=== PATIENT | male | born 1960 | race Caucasian/White ===

== ENCOUNTER 2017-11-07 17:37 | Inpatient (IN) | payer OTHER ==
[~2017-11-07] VITALS: Ht 185.4 cm; Wt 131.9 kg
--- NOTE | ~2017-11-07 | EKG ---
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: RAKEL : 1960 Requested By: Zain Zafar Order Number: [id number] MD: Isiah Gracia Measurements Intervals [place] Rate: 100 P: GA: QRS: -85 QRSD: 128 T: 99 QT: 371 QTc: 479 Interpretive Statements Atrial fibrillation Leftward axis left bundle branch block Compared to ECG 11/07/2017 17:49:13 Heart rate has slowed Electronically Signed On 11-10-2017 9:00:58 SCHEDULE HANGER by Isiah Gracia [email or web address] <ELECTRONICALLY SIGNED> By: Isiah Gracia MD, [facility] 11/10/17 0900 D: [id number] Isiah Gracia MD, FACC /EPI
--- NOTE | ~2017-11-07 | 2DMMODE ---
[facility] [address] [place] [address] 2 D/M-MODE ECHOCARDIOGRAM Name: LULY WILEY VANESSA Room #: 207-P ADM IN M.R.#: [id number] Admission: 11/07/17 Attend Phys: Abundio Maciel Discharge: Date of : 60 Date of Service: 11/08/17 1045 Report #: [id number] THIS REPORT FOR: //name// APPROVED REPORT Study performed: 11/08/2017 09:12:43 EXAM: Comprehensive 2D, Doppler, and color-flow Echocardiogram Patient Location: Bedside Room #: 207 Status: routine BSA: 2.51 HR: 91 bpm BP: 159/78 mmHg Other Information Study Quality: Adequate Indications Congestive Heart Failure Cardiomyopathy Atrial flutter 2D Dimensions RVDd: 57.43 mm LVEF(%): 30.17 (>50%) IVSd: 8.36 (7-11mm) LVOT Diam: 30.42 (18-24mm) LVDd: 70.38 mm PWd: 8.24 (7-11mm) Ascending Ao: 33.82 (22-36mm) LVDs: 60.08 (25-40mm) Aortic Root: 35.38 mm IVC: 31.00 mm Plascencia's LVEF: 30.17 % Volumes Left Atrial Volume (Systole) Single Plane 4CH: 107.10 mL Single Plane 2CH: 203.32 mL LA ESV Index: 66.00 mL/m2 Mitral Valve MV Decel. Time: 93.73 ms MV E Max Neil.: 1.02 m/s Pulmonary Valve PV Peak Neil.: 0.85 m/s PV Peak Gr.: 2.88 mmHg Tricuspid Valve [facility] [email or web address] [address] 2 D/M-MODE ECHOCARDIOGRAM Name: SAURABHLULY VANESSA Room #: 207-P [facility] IN [facility].#: [id number] Admission: 11/07/17 Attend Phys: Abundio Maciel Discharge: Date of : 60 Date of Service: 11/08/17 1045 Report #: [id number] TR Peak Neil.: 2.26 m/s TR Peak Gr.: 20.76 mmHg PA Pressure: 36.00 mmHg Left Ventricle Left ventricle is dilated. There is global hypokinesis of the left ventricle. There is normal left ventricular wall thickness. Left ventricular ejection fraction is severely decreased. LVEF is 20-25%. This study is not technically sufficient to allow evaluation of the LV diastolic function due to atrial fibrillation. Right Ventricle Right ventricle is dilated. Right ventricle is hypokinetic. Atria Left atrium is dilated. Right atrium is dilated. Aortic Valve The aortic valve is normal in structure. No aortic regurgitation is present. There is no aortic valvular stenosis. Mitral Valve The mitral valve is normal in structure. Mild mitral regurgitation. No evidence of mitral valve stenosis. Tricuspid Valve The tricuspid valve is normal in structure. There is trace tricuspid regurgitation. The right atrial pressure is estimated at mmHg. There is mild pulmonary hypertension. Pulmonic Valve The pulmonary valve is normal in structure. Trace pulmonic regurgitation. Great Vessels The aortic root is normal in size. The inferior vena cava is dilated with no inspiratory collapse. Pericardium Trace pericardial effusion. <Conclusion> LVEF is 20-25%. Left ventricle is dilated. There is global hypokinesis of the left ventricle. [facility] [email or web address] [address] 2 D/M-MODE ECHOCARDIOGRAM Name: LULY WILEY Room #: 207-P [facility] IN M.R.#: [id number] Admission: 11/07/17 Attend Phys: Abundio Maciel Discharge: Date of : 60 Date of Service: 11/08/171044 Report #: [id number] No aortic regurgitation is present. Mild mitral regurgitation. Mild mitral regurgitation. <ELECTRONICALLY SIGNED> By: Zain Zafar MD, FACC 11/08/175 44 44 Zain Zafar MD, FACC /INF
--- NOTE | ~2017-11-07 | EKG ---
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
--- NOTE | ~2017-11-07 | EKG ---
[address] [place] [address] ELECTROCARDIOGRAM REPORT Name: LULY WILEY Room #: 207-P ADM IN M.R.#: [id number] Admission: 11/07/17 Attend Phys: Abundio Nettles Discharge: Date of : 60 Report #: [id number] THIS REPORT FOR: //name// [facility] Test Date: 2017-11-10 Test Time: 09:42:13 Pat Name: LULY WILEY Department: Room: 207 P Gender: M Solar Energy Installation Manager: Mel CHAMBERS : 1960 Requested By: Zain Zafar Order Number: [id number] MD: Steven Wade Measurements Intervals [place] Rate: 70 P: -44 HI: 198 QRS: 262 QRSD: 115 T: 158 QT: 430 QTc: 464 Interpretive Statements Sinus rhythm Left atrial enlargement Nonspecific IVCD with LAD Compared to ECG 11/10/2017 05:48:19 Electronically Signed On 11-11-2017 8:25:33 PLANT OPERATOR CONTROL ROOM OPERATOR by Steven Wade [email or web address] <ELECTRONICALLY SIGNED> By: Steven Wade MD 11/11/17 0825 1 1 Steven Wade MD /[place]
--- NOTE | ~2017-11-07 | HC ---
[facility] [place] [address] CONSULTATION Name: SAURABHLULY KILLIAN Room #: 207-P ADM IN M.R.#: [id number] Admission: 11/07/17 Attend Phys: Abundio Nettles Discharge: Date of : 60 Report #: [id number] THIS REPORT FOR: //name// CC: Dazhoinga Nettles A patient of Dr. Brown, [facility], room 207. A 57-year-old white male admitted with an acute episode of atrial flutter. The patient had a similar episode in 2013 and was treated pharmacologically and electrically. He has not taken medication since that time. He was apparently on amiodarone at some time with his prior episode, but appears not to have been taking the medication recently. The patient has no personal or family history of thyroid disease or thyroid abnormalities. He is clinically euthyroid with respect to all other clinical parameters. He is now on a variety of medications including furosemide, lisinopril, carvedilol, and amiodarone. Otherwise, there is no historical information available that has not previously been dictated. OBJECTIVE: LABORATORY DATA: Free T4 from this admission was elevated at 2.8. TSH was low at 0.007. The remainder of the routine lab is as per chart. PHYSICAL EXAMINATION: GENERAL: Well-nourished, well-developed 57-year-old white male, in no acute distress. VITAL SIGNS: The patient is afebrile, heart rate 116 and irregular, blood pressure 122/80. SKIN: Warm and moist without abnormalities. HEENT: There is no ophthalmopathy. The thyroid is minimally enlarged and slightly firm without nodularity. It moves well with deglutition. NEUROLOGIC: Deep tendon reflexes are 2+ with a very minimally accelerated return phase bilaterally. The remainder of the examination is essentially euthyroid. ASSESSMENT: Hyperthyroidism, must rule out Graves disease, it is unlikely but still possible that this was caused by prior exposure to amiodarone. The patient is now back on amiodarone, which may make diagnosis and treatment more difficult. PLAN: 1. The patient is currently tachycardic. He is on some suppression with carvedilol. Will allow Cardiology to decide whether more substantial beta blockade is indicated or not. 2. Will evaluate TBII to evaluate for presence or absence of Graves disease. 3. Will initiate 6 and 24-hour radioiodine thyroid uptake to determine whether the patient could potentially be treated with radioiodine. Will also initiate [address] [address] CONSULTATION Name: LULY WILEY VANESSA Room #: 207-P [facility] IN .R.#: [id number] Admission: 11/07/17 Attend Phys: Abundio Nettles Discharge: Date of : 60 Report #: [id number] methimazole while awaiting radioiodine testing. If the patient's disease is due to amiodarone, it may require high doses of antithyroid medication for control and it would take months before the stored up thyroid hormone is metabolized out into the system, rendering the patient clinically euthyroid. 4. If possible, avoid any IV iodine containing contrast solution as this can significantly exacerbate current hyperthyroidism. 5. Have discussed the three methods of treatment with the patient (surgery, antithyroid drugs, radioiodine) and will discuss with him further once pending lab is available. Thank you very much for this consultation. I will continue to follow the patient with you for evaluation and treatment of thyroid disease. <ELECTRONICALLY SIGNED> By: Roberto Stout MD 11/10/17 1353 1322 13 Roberto Stout MD /nt
--- NOTE | ~2017-11-07 | HC ---
[facility] [place] [address] CONSULTATION Name: LULY WILEY Room #: 207-[facility] IN M.R.#: [id number] Admission: 11/07/17 Attend Phys: Abundio Nettles Discharge: 11/11/17 Date of : 60 Report #: [id number] THIS REPORT FOR: //name// CC: Macario Nettles No family physician. REQUESTING PHYSICIAN: Dr. Martinez. CHIEF COMPLAINT: Shortness of breath, atrial fibrillation. HISTORY OF PRESENT ILLNESS: The patient is a 57-year-old man with a history of paroxysmal atrial fibrillation, previously followed by Dr. Yoo in our practice. Over the past month since after , he has developed increasing shortness of breath, weight gain to a certain extent and associated dyspnea with exertion and PND. He presented with tachycardia with heart rates in the 120s. He has a previous history of atrial fibrillation and had a prior NELLA cardioversion in the past. He has been off all his medications as he has not been seen in our office or a primary doctor's. He denies chest pain or pressure. He presents with no neuro symptoms of slurred speech, numbness, visual changes or weakness. He is a smoker. He smokes 1-2 cigarettes daily and drinks perhaps only 1 day per week, perhaps 2-3 beers on the weekend only. He denies fevers, chills or productive cough. He denies significant edema. He denies any complications with his previous medications including anticoagulation, has no complaints of GI or bleeding. He denies falls. HOME MEDICATIONS: Did include Xarelto, carvedilol 6.25 mg p.o. b.i.d., lisinopril 2.5 mg daily and Lipitor 20 mg daily. PAST MEDICAL HISTORY: In addition to paroxysmal atrial fibrillation, he has hypertension, tobacco use, hyperlipidemia. He is not a diabetic. SOCIAL HISTORY: A [id number] history of smoking. PAST SURGICAL HISTORY: No recent surgeries. REVIEW OF SYSTEMS: [facility] [address] [place] [address] CONSULTATION Name: LULY WILEY VANESSA Room #: 207-[facility] IN M.R.#: [id number] Admission: 11/07/17 Attend Phys: Abundio Nettles Discharge: 11/11/17 Date of : 60 Report #: [id number] GASTROINTESTINAL: No abdominal pain, nausea, vomiting, bleeding. GENITOURINARY: No dysuria or hematuria. PULMONARY: No history of obstructive lung disease. No cough or wheezing. CARDIOVASCULAR: Positive orthopnea, positive PND, positive weight gain, positive dyspnea with exertion, no chest pain. NEUROLOGIC: No syncope or seizures. HEMATOLOGIC: No anemia or bleeding disorders. SKIN: No rashes. RENAL: No history of kidney failure. ENDOCRINE: He is not known to have any thyroid disease. PHYSICAL EXAMINATION: VITAL SIGNS: Blood pressure is 105/68, pulse is 94, temperature is 36.7. GENERAL: This is an obese, middle-aged male, is alert, oriented, no apparent distress. NECK: Supple. No jugular venous distention. CARDIOVASCULAR: Regular, tachycardic. LUNGS: Diminished breath sounds bilaterally. Faint basilar rales. ABDOMEN: Soft, nontender, nondistended, obese. EXTREMITIES: There is a trace amount of edema. SKIN: Warm and dry. PSYCHIATRIC: The patient has appropriate mood and affect. LABORATORY DATA: Electrocardiogram demonstrates a left bundle branch block with a tachycardic, regular. Possible discernible P waves or flutter waves. Chest x-ray reveals bilateral infiltrates, cardiomegaly. His troponin was 0.04. Total cholesterol was 97, with an LDL of 50, creatinine is 1.1. Hemoglobin 16.6. IMPRESSION: 1. Acute congestive heart failure, likely systolic dysfunction. He has been given IV diuretics, and we will restart his Coreg and lisinopril. 2. Atrial fibrillation, it appears he may be in atrial flutter. He has been started on IV Cardizem with heart rates in the 110s. I would like to go ahead and reload him with amiodarone for at least transient therapy in anticipation that he may require another cardioversion with transesophageal echocardiogram. This is if he will not convert on his own. 3. Hypertension. This is improved. 4. Anticoagulation, anticoagulation adequate. His CHADS-VASC score is 2, and I would recommend resuming his Xarelto, which he tolerated in the past without any issue. <ELECTRONICALLY SIGNED> By: Zain Zafar MD, [facility] 12/07/17 0843 0845 1047 Zain Zafar MD, FAC /nt
--- NOTE | ~2017-11-07 | TEE ---
[facility] [address] [employer] [place] [address] TRANSESOPHAGEAL ECHOCARDIOGRAM Name: LULY WILEY Room #: 207-P [facility] IN M.R.#: [id number] Admission: 11/07/17 Attend Phys: Abundio Maciel Discharge: Date of : 60 Date of Service: 11/10/17 1102 Report #: [id number] THIS REPORT FOR: //name// APPROVED REPORT Study performed: 11/10/2017 08:41:27 EXAM: Transesophageal Echocardiogram Patient Location: [facility] Room #: 207 Status: routine BSA: 2.52 HR: 110 bpm BP: 130/84 mmHg Rhythm: Atrial Fibrillation Other Information Study Quality: Adequate Indications Atrial Fibrillation Cardioversion Procedure After obtaining informed consent, patient underwent transesophageal echo in the [employer]. Type of Sedation : Conscious Sedation Sedation was administered by Yamilka Ribera RN. Sedation was achieved intravenously with: Versed (6) Fentanyl (50) Transesophageal probe was inserted and advanced into esophagus without difficulty by Zain Zafar MD, [facility]. The NELLA was performed without complications. Synchronized Cardioversion attempted: Successful Synchronized Cardioversion acheived with 200 Joules after 1 attempt(s). Throughout the procedure, the blood pressure, pulse oximetry, cardiac rhythm, and rate were monitored. The patient tolerated the procedure without adverse effects. Recovery from conscious sedation was uneventful and vital signs were stable. Left Ventricle Left ventricle is dilated. There is global hypokinesis of the left ventricle. There is normal left ventricular wall thickness. Left [facility] [address] [place] [address] TRANSESOPHAGEAL ECHOCARDIOGRAM Name: LULY WILEY VANESSA Room #: 207-P [facility] IN ..#: [id number] Admission: 11/07/17 Attend Phys: Abundio Maciel Discharge: Date of : 60 Date of Service: 11/10/17 1102 Report #: [id number] ventricular systolic function is severely decreased. No left ventricle thrombus noted on this study. LVEF is 20-25%. Right Ventricle Right ventricle is dilated. Right ventricle is hypokinetic. Atria Left atrium is dilated. No thrombus is visualized in the left atrium or appendage. No shunting noted with contrast bubble injection. Right atrium is dilated. Aortic Valve The aortic valve is normal in structure. No aortic regurgitation is present. There is no aortic valvular stenosis. Mitral Valve The mitral valve is normal in structure. Mild to moderate mitral regurgitation. Tricuspid Valve The tricuspid valve is normal in structure. Trace tricuspid regurgitation. Pulmonic Valve The pulmonary valve is normal in structure. Trace pulmonic regurgitation. Pericardium There is no pericardial effusion. <Conclusion> LVEF is 20-25%. There is global hypokinesis of the left ventricle. Right ventricle is dilated. Left atrium is dilated. No thrombus is visualized in the left atrium or appendage. Mild to moderate mitral regurgitation. No shunting noted with contrast bubble injection. <ELECTRONICALLY SIGNED> By: Zain Zafar MD, FACC 11/10/17 110 01 01 Zain Zafar MD, FACC /INF
--- NOTE | ~2017-11-07 | CATHLAB ---
[address] [place] [address] INVASIVE PROCEDURE REPORT Name: SAURABHLULYREBECCA MENDEZ Room #: 207-P [facility] IN ..#: [id number] Admission: 11/07/17 Attend Phys: Abundio Maciel Discharge: 11/11/17 Date of : 60 Date of Service: 11/10/17 1100 Report #: [id number] THIS REPORT FOR: //name// CC: Dazfazal Nettles DATE OF SERVICE: 11/10/2017 INDICATION: The patient is a 57-year-old man who presented with acute CHF and atrial fibrillation. CONSENT: The risks and benefits of the procedure described to patient in lay terms. The patient elects to proceed. After conscious sedation was administered, please see record for dosing, a transesophageal echocardiogram and cardioversion was performed. The cardiac monitoring with telemetry in addition to oxygen saturation, blood pressure, respiratory rate monitoring were monitored per protocol. His transesophageal echocardiogram did not show evidence of intracardiac thrombus, so he was treated with a DC cardioversion, 200 joules, biphasic to convert him from atrial fibrillation to sinus rhythm in the 70s. IMPRESSION: 1. Successful NELLA-guided cardioversion. 2. Atrial fibrillation. <ELECTRONICALLY SIGNED> By: Zain Zafar MD, [facility] 12/07/17 0843 1100 56 Zain Zafar MD, FACC /nt
[~2017-11-07 17:37] MED LIST: BAYER CHEWABLE81 MG PO; CARVEDILOL6.25 MG PO; KEFLEX500 MG PO; LIPITOR 20 MG T20 M1 PO; LISINOPRIL2.5 MG PO; NOHOMEMEDICATIONS; PACERONE 200 M200 M1 PO; PAIN RELIEVER325 MG PO; XARELTO20 MG PO
[2017-11-07 17:38] VITALS: BP 158/127
[2017-11-07 18:44] LABS: ABSOLUTE NEUTROPHILS 4.5 thou/uL (1.4-8.2); BASOPHILS 0.6 % (0.0-2.0); EOSINOPHILS 1.4 % (0.0-3.0); HEMATOCRIT 50.9 % (42.0-52.0); HEMOGLOBIN 16.6 gm/dL (14.0-18.0); LYMPHOCYTES 35.9 % (24.0-44.0); MCH 28.3 pg (26.0-34.0); MCHC 32.6 g/dL (28.0-37.0); MCV 86.9 fL (80.0-100.0); MONOCYTES 8.9 % (1.0-8.0); PLATELET COUNT 253 thou/uL (150-400); POLYS 53.2 % (36.0-66.0); RBC 5.86 mil/uL (4.50-6.00); RDW 15.2 % (10.5-14.5); WBC 8.5 thou/uL (4.0-11.0)
[2017-11-07 18:48] LABS: ANION GAP 8 mmol/L (7-16); BUN 16 mg/dL (7-18); CALCIUM 9.6 mg/dL (8.5-10.1); CHLORIDE 104 mmol/L (98-107); CO2 27 mmol/L (21-32); CREATININE 1.1 mg/dL (0.7-1.3); GLUCOSE 156 mg/dL (74-106); POTASSIUM 4.2 mmol/L (3.5-5.1); SODIUM 139 mmol/L (136-145)
[2017-11-07 18:57] LABS: APTT 26.6 Seconds (24.5-32.8); INR 1.3; PROTIME 12.9 Seconds (9.3-11.4); TROPONIN-I < 0.04 ng/mL (<0.06)
[2017-11-07 19:50] VITALS: BP 151/96
[2017-11-07 20:13] VITALS: BP 158/92
[2017-11-07 23:20] VITALS: BP 126/78
[2017-11-08 04:25] VITALS: BP 105/68
[2017-11-08 05:12] LABS: CHOLESTEROL 97 mg/dL (<200); HDL CHOLESTEROL 33 mg/dL (>40); LDL CHOLESTEROL 50 mg/dL (<100); TC:HDL 2.9 Ratio (Not establshd); TRIGLYCERIDE 74 mg/dL (<150); VLDL 15 mg/dL (<40)
[2017-11-08 05:19] LABS: SERUM ASSESSMENT Clear
[2017-11-08 08:45] VITALS: BP 159/78
[2017-11-08 12:53] VITALS: BP 107/82
[2017-11-08 13:12] LABS: GLYCOHEMOGLOBIN (HGB A1C) 5.6 % (4.8-5.6)
[2017-11-08 16:31] VITALS: BP 111/55
[2017-11-08 19:32] VITALS: BP 90/67
[2017-11-08 23:29] VITALS: BP 137/80
[2017-11-09 04:02] VITALS: BP 120/82
[2017-11-09 11:09] VITALS: BP 122/80
[2017-11-09 14:04] LABS: % SATURATION 11 % (20-39); IRON 52 ug/dL (65-175); TIBC 467 ug/dL (250-450)
[2017-11-09 14:13] VITALS: BP 87/30
[2017-11-10] VITALS (9 sets, daily range): BP systolic 80–151; BP diastolic 49–84
[2017-11-10 03:29] LABS: CALCIUM 9.2 mg/dL (8.5-10.1); CREATININE 1.1 mg/dL (0.7-1.3); POTASSIUM 4.5 mmol/L (3.5-5.1)
[2017-11-11 04:40] VITALS: BP 81/41
[2017-11-11 05:25] VITALS: BP 117/73
[2017-11-11 07:33] VITALS: BP 93/68
[2017-11-11] MEDS ORDERED: XARELTO20 MG PO (07:59)
[2017-11-11] MEDS ORDERED: LISINOPRIL5 MG PO (08:00)
[2017-11-11] MEDS ORDERED: COREG6.25 MG PO (08:00)
[2017-11-11] MEDS ORDERED: PACERONE 200 M200 MG PO (08:00)
[2017-11-11] MEDS ORDERED: METHIMAZOLE5 MG PO (08:00)
[2017-11-11 11:48] VITALS: BP 93/68
== END 2017-11-11 13:02 | disposition home or self-care (01) | DRG 308 ==
LOC: ER 17:37 → EROBS 19:29 → 2N 19:29 → ENTRNSPT 11-11 12:05 → EDTRNSPTSTS 11-11 12:07 → 2N 11-11 13:02
PROVIDERS: Emergency Medicine; Internal Medicine Cardiovascular Disease; Internal Medicine Endocrinology, Diabetes & Metabolism; Nurse Practitioner Acute Care
PROC: B24BZZ4 Ultrasonography of Heart with Aorta, Transesophageal (ICD-10-PCS; principal; 2017-11-10)
PROC: 5A2204Z Restoration of Cardiac Rhythm, Single (ICD-10-PCS; 2017-11-10)
DX: I48.92 Unspecified atrial flutter (principal); I50.23 Acute on chronic systolic (congestive) heart failure; I44.7 Left bundle-branch block, unspecified; I11.0 Hypertensive heart disease with heart failure; F17.210 Nicotine dependence, cigarettes, uncomplicated; I48.0 Paroxysmal atrial fibrillation; E05.90 Thyrotoxicosis, unspecified without thyrotoxic crisis or storm; E78.5 Hyperlipidemia, unspecified; Z91.19 Patient's noncompliance with other medical treatment and regimen; Z79.899 Other long term (current) drug therapy; Z79.82 Long term (current) use of aspirin
CPT/HCPCS: 10081